=== PATIENT | female | born 1995 | race African-American/Black ===

== ENCOUNTER 2017-04-23 19:27 | Emergency (ER) | payer OTHER ==
[~2017-04-23] VITALS: Ht 162.6 cm; Wt 98.0 kg
[~2017-04-23 19:27] MED LIST: CYCL-36 PO; METR-1 PO; NAPR550 PO; Z.0.NO CURRENT MEDS
[2017-04-23 19:30] VITALS: BP 135/69; PULSE 72; RESP 16; TEMP 98.9; O2SAT 99
--- NOTE | 2017-04-23 20:01 | PD ---
Physical Exam Date Seen by Provider: Apr 23, 2017 Time Seen by Provider: 19:57 Narrative 21 yo female here for evaluation of chest pain. Going on for 4 days. Nothing makes it better or worst. Pressure like 7/10. No SOB. no injury. No cold like symptoms. Constant. Has not seen anybody for this. Vitals sign stable. Patient awaiting bed placement. Data Data Last Documented VS Vital Signs Date Time Temp Pulse Resp B/P Pulse Ox O2 Delivery O2 Flow Rate FiO2 04/23/17 19:30 98.9 72 16 135/69 99 Room Air [facility] Medical Record Reviewed: Yes Supervised Visit with HORTENSIA: No Montana Bennett Apr 23, 2017 20:01
--- NOTE | 2017-04-23 21:52 | EKG ---
Date Performed: 04/23/2017 Time Performed: 20:11:17 PTAGE: 21 years EKG: Sinus rhythm NORMAL ECG NO PREVIOUS TRACING DOCTOR: Collin Lawler Interpretating Date/Time 04/23/2017 21:51:34
--- NOTE | 2017-04-23 22:41 | PD ---
HPI Chief Complaint: Chest Pain Time Seen by Provider: 22:03 Travel History International Travel<30 days: No Contact w/Intl Traveler<30days: No Traveled to known affect area: No History of Present Illness HPI 21-year-old female describes chest pressure. She's had it for about 3-4 days. She first noticed it while she was at rest. She's had no shortness of breath fever or cough. No similar prior episode has occurred. She notes exercising today during which time she had no discomfort of the chest. She has had no fever or cough. Initially the patient additionally described a burning sensation in the region of the right shoulder just since migrated to the left shoulder. She reports quite a bit of stress at school and work. No nausea or vomiting. Her diet has been normal lately. She denies any factor. Personal history of heart disease nor any significant familial history of heart disease. She denies drug or alcohol use. She does not smoke. She reports occasionally drinking energy drinks for school however none in excess or on a routine basis. [facility] Past Medical History Immunizations Current: Yes Tetanus Vaccination: Unknown Influenza Vaccination: No ?: Not LMP: 04/02/17 : 0 Social History Alcohol Use: No Tobacco Use: Yes Substance Use: Yes (marijuana) Allergies-Medications (Allergen,Severity, Reaction): Coded Allergies: No Known Allergies (Unverified , 04/23/17) Reported Meds & Prescriptions Reported Meds & Active Scripts Active Review of Systems Except as stated in HPI: all other systems reviewed are Neg General / Constitutional: No: Fever, Chills Cardiovascular: Positive: Chest Pain or Discomfort, No: Irregular Rhythm, Tachycardia, Diaphoresis, Syncope, Dyspnea on exertion, Varicosities, Edema Physical Exam Narrative GENERAL: 21-year-old female pleasant well-nourished well-developed SKIN: Focused skin assessment warm/dry. HEAD: Atraumatic. Normocephalic. EYES: Pupils equal and round. No scleral icterus. No injection or drainage. ENT: No nasal bleeding or discharge. Mucous membranes pink and moist. NECK: Trachea midline. No JVD. CARDIOVASCULAR: Regular rate and rhythm. No murmur appreciated. No tenderness about the chest wall. RESPIRATORY: No accessory muscle use. Clear to auscultation. Breath sounds equal bilaterally. GASTROINTESTINAL: Abdomen soft, non-tender, nondistended. Hepatic and splenic margins not palpable. MUSCULOSKELETAL: No obvious deformities. No clubbing. No cyanosis. No edema. NEUROLOGICAL: Awake and alert. No obvious cranial nerve deficits. Motor grossly within normal limits. Normal speech. PSYCHIATRIC: Appropriate mood and affect; insight and judgment normal. Data Data Last Documented VS Vital Signs Date Time Temp Pulse Resp B/P Pulse Ox O2 Delivery O2 Flow Rate FiO2 04/23/17 19:30 98.9 72 16 135/69 99 Room Air Vital signs reviewed Orders Electrocardiogram (04/23/17 ) MDM Medical Decision Making Medical Screen Exam Complete: Yes Emergency Medical Condition: Yes Medical Record Reviewed: Yes Differential Diagnosis NSTEMI, unstable angina, coronary vasospasm, PE, PTX, aortic dissection, pericarditis, myocarditis, endocarditis, PNA, esophageal disease, aneurysm, musculoskeletal etiologies, anxiety, cocaine/sympathomimetic abuse Narrative Course EKG reveals a sinus rhythm EKG reveals sinus rhythm with no evidence of pericarditis or ischemic injury pattern The patient is resting comfortably and feels better, is alert and in no distress. The patients results and examination findings were discussed. The repeat examination is unremarkable and benign. The history, exam, diagnostic testing, and current condition do not suggest any significant pathology to warrant further testing, continued ED treatment, admission, or surgical evaluation at this point. The vital signs have been stable. The patient does not have uncontrollable pain, intractable vomiting, or other significant symptoms. The patient's condition is stable and appropriate for discharge. The patient will pursue further outpatient evaluation with a primary care physician or other designated or consulting physician as indicated in the discharge instructions. The patient expressed understanding and was agreeable with this plan. Diagnosis Primary Impression: Chest discomfort Referrals: Primary Care Physician 2 days Additional Instructions: You have a choice when it comes to health care, and we are glad that you chose [facility]. Hopefully, we have met your expectations on today's visit. You are welcome to return to [facility] at any time, as we are committed to meeting the health care needs of our community. Med/Other Pt SpecificInfo: No Change to Meds Disposition: 01 DISCHARGE HOME Condition: Stable Theron Way MD Apr 23, 2017 22:41
== END 2017-04-23 23:13 | disposition home or self-care (01) ==
LOC: NEPE 19:27
DX: R07.89 Other chest pain (principal); Z72.0 Tobacco use
CPT/HCPCS: 93005; 99283

== ENCOUNTER 2018-04-20 07:38 | Emergency (ER) | payer SELFPAY ==
[~2018-04-20] VITALS: Ht 165.1 cm; Wt 109.0 kg
[2018-04-20 07:40] VITALS: BP 138/76; PULSE 77; RESP 18; TEMP 98.1; O2SAT 100
--- NOTE | 2018-04-20 07:51 | PD ---
HPI Chief Complaint: Skin Problem Time Seen by Provider: 07:44 Travel History International Travel<30 days: No Contact w/Intl Traveler<30days: No Traveled to known affect area: No History of Present Illness HPI 22-year-old female with no significant medical history, presents emergency department for evaluation of a rash in her right axilla. Patient states it was initially in her left axilla, she was given an unknown cream, and it went away. She states over the last week she has developed this raised reddened rash in her right axilla. It is uncomfortable and itchy but not painful. She denies any new exposures. She has no fever chills. She has no other symptoms to report. History Past Medical Histgory Medical History: Denies Significant Hx Social History Alcohol Use: No Tobacco Use: Yes Allergies-Medications (Allergen,Severity, Reaction): Coded Allergies: No Known Allergies (Unverified , 04/23/17) Reported Meds & Prescriptions Reported Meds & Active Scripts Active Review of Systems Except as stated in HPI: all other systems reviewed are Neg Physical Exam Narrative GENERAL: Well-nourished, well-developed female patient in no acute distress SKIN: Focused skin assessment warm/dry. Reddened raised, well demarcated erythematous eruption in the right axilla. No vesicle or pustule formation. HEAD: Normocephalic. EYES: No scleral icterus. No injection or drainage. NECK: Supple, trachea midline. No JVD or lymphadenopathy. CARDIOVASCULAR: Regular rate and rhythm without murmurs, gallops, or rubs. RESPIRATORY: Breath sounds equal bilaterally. No accessory muscle use. MUSCULOSKELETAL: No cyanosis, or edema. Data Data Last Documented VS Vital Signs Date Time Temp Pulse Resp B/P (MAP) Pulse Ox O2 Delivery O2 Flow Rate FiO2 04/20/18 07:40 98.1 77 18 138/76 (96) 100 MDM Medical Screen Exam Complete: Yes Emergency Medical Condition: No Differential Diagnosis Fungal rash in the right axilla Narrative Course 22-year-old female presents emergency department for evaluation of a rash in his right axilla. Physical exam is consistent with a fungal rash. Patient is counseled on care, encouraged to apply [id number] antifungal cream. At this time there are no urgent or emergent needs for medical intervention identified. A medical screening exam was performed: At the time of evaluation the presenting medical condition was determined not to be of an emergent nature. The patient was given the option of receiving additional care, but declined. Patient was given options for additional community resources from which to obtain care. The Patient Has Been advised to seek medical attention for their presenting complaint. The patient has been advised to return to the ER at any time if an emergent condition develops. Primary Impression: Encounter for medical screening examination Condition: Stable Jeanette Martin Apr 20, 2018 07:51
== END 2018-04-20 07:59 | disposition left against medical advice (07) ==
LOC: NEPD 07:38
DX: R21 Rash and other nonspecific skin eruption (principal)
CPT/HCPCS: 99281